=== PATIENT | female | born 1980 | race Caucasian/White ===

== ENCOUNTER 2016-09-17 06:11 | Day surgery (SDC) | payer OTHER ==
--- NOTE | 2016-09-02 13:32 | HP ---
DATE OF SURGERY: 09/17/2016. REASON FOR ADMISSION: Chronically incarcerated epigastric hernia repair. BRIEF HISTORY: This is a 36-year-old female with a known ventral hernia. She states she has had the hernia prior to her 2 children being born, however, after the 2 pregnancies, the hernia has gotten larger and more painful. She now has a lump in the upper abdomen that is very prominent. The lump causes pain whenever touched or she leans on it. She has had no bouts of nausea, no vomiting, no change in bowel habits. PAST MEDICAL HISTORY: No coronary disease, hypertension or diabetes. PAST SURGICAL HISTORY: None. MEDICATIONS: None. ALLERGIES: None. SOCIAL HISTORY: Patient does not smoke. She drinks socially. PHYSICAL EXAMINATION: Lungs: Clear. Heart: Regular rhythm. Abdomen: Soft. She has previous scars from liposuction. She has a chronically incarcerated epigastric hernia noted. The hernia is noted approximately half a palm width above the umbilicus. The hernia defects are not truly appreciated due to its chronically incarcerated nature. The hernia is tender on exam. The remainder of the abdominal examination is unremarkable. IMPRESSION/PLAN: Chronically incarcerated ventral hernia. Would recommend an open repair of this hernia with mesh. The patient most likely does not require any type of component separation, however, if the tissue is very frayed around the defect , and the defect is larger than anticipated, she may require a component separation to allow a tension-free repair. The indications, alternatives, and complications discussed, questions answered. Will plan to obtain written consent the day of surgery. MERVAT NEWBERRY M.D. [id number] cc: Wisam Cassidy MD, [facility]
[2016-09-14 10:24] VITALS: BMI 26.6
[2016-09-17] MEDS ORDERED: LIDOCAINE HCL/PF 2% SDV 5ML VIAL ONE (07:02)
[2016-09-17] MEDS ORDERED: PROPOFOL 20 ML ONE (07:02)
[2016-09-17] MEDS ORDERED: SUCCINYLCHOLINE CHLORIDE 200 MG/10 ML VIAL ONE (07:03)
[2016-09-17] MEDS ORDERED: ROCURONIUM BROMIDE 50 MG/5 ML VIAL ONE (07:03)
[2016-09-17] MEDS ORDERED: BUPIVACAINE HCL/PF 2.5 MG/ML - 30 ML VIAL IJ ONE (07:35)
[2016-09-17] MEDS ORDERED: MIDAZOLAM HCL 2 MG/2 ML SINGLE DOSE VIAL ONE (07:46)
[2016-09-17] MEDS ORDERED: DEXAMETHASONE SOD PHOSPHATE/PF 10 MG/ML SDV ONE (07:47)
[2016-09-17] MEDS ORDERED: ceFAZolin SODIUM 1 GM VIAL ONE (08:27)
[2016-09-17] MEDS ORDERED: HYDROmorphone HCL/PF 1 MG/ML VIAL (FOR PYXIS CHARGING ONLY) ONE (08:28)
[2016-09-17] MEDS ORDERED: NEOSTIGMINE METHYLSULFATE 0.5 MG/ML - 10 ML MDV ONE (08:52)
[2016-09-17] MEDS ORDERED: ONDANSETRON 4 MG/2 ML VIAL ONE ×2 (08:53)
[2016-09-17] MEDS ORDERED: DEXAMETHASONE SOD PHOSPHATE 4 MG/1 ML VIAL ONE ×2 (08:53)
[2016-09-17] MEDS ORDERED: LACTATED RINGERS SOLUTION 1,000 ML IV SCH (10:15)
[2016-09-17] MEDS ORDERED: IBUPROFEN 800 MG/8 ML IJ IVPB PRN (10:18)
[2016-09-17] MEDS ORDERED: D5-1/2NS+20 MEQ KCL - 1,000 ML IV SCH (11:00)
[2016-09-17] MEDS ORDERED: morphine CARPU-JECT 4 MG/1 ML DISP.SYRIN IVPB PRN (11:41)
[2016-09-17] MEDS ORDERED: ONDANSETRON 4 MG/2 ML VIAL IVPB PRN (11:42)
[2016-09-17] MEDS ORDERED: ONDANSETRON 4 MG/2 ML VIAL IVPUSH PRN (11:42)
[2016-09-17] MEDS ORDERED: PROMETHAZINE HCL 25 MG/1 ML VIAL IVPUSH PRN (11:44)
[2016-09-17] MEDS: oxyCODONE HCL 5 MG TABLET PO PRN ×2 (13:30→17:56)
[2016-09-17] MEDS: ACETAMINOPHEN 325 MG TABLET (FP) PO PRN ×2 (13:31→17:57)
[2016-09-17] MEDS ORDERED: FAMOTIDINE 20 MG/50 ML IVPB 50 ML IVPB ONE (14:15)
--- NOTE | 2016-09-17 14:30 | OP ---
DATE OF OPERATION: 09/17/2016 PREOPERATIVE DIAGNOSIS: Chronically incarcerated complex ventral hernia. POSTOPERATIVE DIAGNOSIS: Chronically incarcerated complex ventral hernia. PROCEDURE: Open repair of complex chronically incarcerated ventral hernia with mesh, bilateral component separation. SURGEON: Reyes Light MD COOKER CASING: Wisam Lambert DO ANESTHESIA: Gladys Britt MD (general). ESTIMATED BLOOD LOSS: Minimal. SPECIMEN: None. INDICATIONS/PROCEDURE: This is a 36-year-old female with a known chronically incarcerated ventral hernia. The hernia is noted to be in the epigastrium in the midline, and she has a secondary hernia much lower. Patient is here today for repair of these hernias since they are medically necessary due to her having pain and discomfort. Patient was identified and appropriately positioned on the operating room table. After placement of general anesthesia, the abdomen was prepped and draped in the usual sterile fashion with ChloraPrep. A midline incision was made deep in the subcutaneous tissue. The hernia was identified in both locations. It free from the subcutaneous tissue with blunt and sharp dissection. The fascial edge of the hernia was then subsequently circumscribed, and the patient was noted to have a bridge of tissue that was approximately 3 mm between the 2 discrete obvious holes. She was also noted to have multiple Spanish cheese defects, as well. The Spanish cheese defects were then divided. The bridges between the Spanish cheese defects were divided in a similar fashion. Next, the retrorectus space on the right side was identified and and opened with the cautery. The space was then developed bluntly out towards the lateral abdominal wall at the lateral abdominal or the perforating vessels enter. The fascia at the transversus was scored and off the obliques and the rectus. The myofascial separation continued for the length of the incision and approximately 3-4 cm above and below as well. Once this was done on the right side, a similar technique was used on the patients left side. The retrorectus space entered and the dissection ensued laterally beyond the rectus to the perforating vessels. The transversus was then subsequently scored, and the fascia at the transversus was and released from the junction of the obliques and rectus. Next, this allowed a retrorectus repair. The midline was not violated. The peritoneum was not violated at this point. The dissected now ensued several centimeters above and below in the midline. The bladder was subsequently mobilized with blunt dissection inferiorly. The defect was subsequently measured, and a large 15 x 15 piece of ProGrip was used for the operative repair along with a 10 x 15 piece of Phasix. The Phasix was anchored to the ProGrip with interrupted 3-0 Vicryl sutures. The Phasix was placed on the down side, and the ProGrip placed sub on the muscular side. The mesh was placed into this space and it fanned out laterally and superiorly and inferiorly. The mesh was then tacked in several locations with the Covlemonade.uken Deep Purchase AbsorbaTack. The operative field examined and noted to be hemostatic. The mesh was irrigated. The irrigant retrieved and noted to be clear. The midline fascia was then reapproximated with interrupted 0 PDS suture. The subcutaneous space was irrigated. A 10 flat JESSY placed into this space and then subsequently brought out through a separate stab incision. The dermis was reapproximated with interrupted inverted 3-0 Vicryl suture, and the skin closed with a running 4-0 subcuticular Biosyn followed by Dermabond. At the conclusion of the case, sponge and instrument counts were correct. ATTESTATION: Brief operative note handwritten on the preprinted form. [place] [employer] will be queried prior to giving any narcotics. . Ronald SWANN [id number] cc: Wisam Cassidy MD, in [place], [place]. MTDTerri
[2016-09-18] MEDS: oxyCODONE HCL 5 MG TABLET PO PRN ×2 (01:44→07:34)
[2016-09-18 06:11] VITALS: BP 107/65; PULSE 64; TEMP 98.7
[2016-09-18] MEDS ORDERED: PANTOPRAZOLE SODIUM 100 ML IVPB SCH (10:00)
[2016-09-18] MEDS ORDERED: ENOXAPARIN NA (PORCINE) 40 MG/0.4 ML DISP.SYRIN SQ SCH (10:00)
== END 2016-09-18 11:00 | disposition home or self-care (01) ==
LOC: FASU 06:11 → FM/S 11:29 → FASU 09-18 11:00
PROVIDERS: ATTEND Surgery
PROC: 0JX80ZC Transfer Abdomen Subcutaneous Tissue and Fascia with Skin, Subcutaneous Tissue and Fascia, Open Approach (ICD-10-PCS; 2016-09-17)
PROC: 0WUF0JZ Supplement Abdominal Wall with Synthetic Substitute, Open Approach (ICD-10-PCS; principal; 2016-09-17 08:00)
DX: K43.6 Other and unspecified ventral hernia with obstruction, without gangrene (principal)
CPT/HCPCS: 84703; 94760